=== PATIENT | male | born 1975 | race Two or more races ===

== ENCOUNTER 2020-12-01 22:31 | Inpatient (IN) | payer OTHER ==
[~2020-12-01] VITALS: Ht 157.5 cm; Wt 81.6 kg
== END 2020-12-05 11:43 | disposition home or self-care (01) | DRG 390 ==
LOC: ER 22:31 → SURH 12-02 10:14 → SEC-K 12-02 10:14 → SURH 12-03 11:45
PROVIDERS: ADMIT Surgery; ATTEND Surgery
PROC: BW2110Z Computerized Tomography (CT Scan) of Abdomen and Pelvis using Low Osmolar Contrast, Unenhanced and Enhanced (ICD-10-PCS; principal; 2020-12-01)
DX: K56.690 Other partial intestinal obstruction (principal); E86.0 Dehydration; Z90.49 Acquired absence of other specified parts of digestive tract

== ENCOUNTER 2021-03-21 12:38 | Outpatient (CLI) | payer OTHER | END 2021-03-21 12:55 | disposition home or self-care (01) | LOC: RAD 12:38 | PROVIDERS: ATTEND Orthopaedic Surgery | DX: M25.561 Pain in right knee (principal); M25.562 Pain in left knee; M54.59 Other low back pain ==

== ENCOUNTER 2022-08-07 16:27 | Emergency (ER) | payer OTHER ==
[~2022-08-07] VITALS: Ht 177.8 cm; Wt 81.2 kg
== END 2022-08-07 21:50 | disposition home or self-care (01) ==
LOC: ER 16:27
DX: N45.1 Epididymitis (principal)

== ENCOUNTER 2025-01-20 06:07 | Day surgery (SDC) | payer OTHER ==
[2025-01-12 14:19] VITALS: BP 110/69
[2025-01-12 14:22] LABS: URINE APPEARANCE Clear; URINE BILIRRUBIN Negative (NEGATIVE); URINE BLOOD Negative; URINE COLOR Yellow; URINE GLUCOSE Negative (NEGATIVE); URINE KETONE Negative (NEGATIVE); URINE LEUKOCYTE Negative; URINE NITRATE Negative; URINE PROTEIN Negative (NEGATIVE); URINE UROBILINOGEN 0.2 E.U./dl
[2025-01-12 14:23] LABS: BASO % 1.2 % (0.1-1.2); EOS # 0.43 (0.04-0.54); EOS % 8.9 % (0.7-7.0); LYMPH # 1.69 (1.18-3.74); LYMPH % 35.1 % (19.3-53.1); MEAN PLATELET VOLUME 10.40 fl (9.4-12.4); MONO # 0.47 (0.24-0.82); MONO % 9.8 % (4.7-12.5); NEUT # 2.16 (1.56-6.13); NEUT % 45.0 % (34.0-71.1); RED CELL DISTRIBUTION WIDTH 12.5 % (11.6-14.4); URINE RBC 7.7 uL (0.0-20.8); URINE WBC 2.1 uL (0.0-23.2)
[2025-01-12 14:29] LABS: URINE BACTERIA 1.1 uL (0.0-1933); URINE CAST 0.00 uL (0.0-1.40); URINE EPITHELIAL CELLS 1.0 uL (0.0-38.8)
[2025-01-12 14:45] LABS: ALT/SGPT 41.0 U/L (12-78); AST/SGOT 18.0 U/L (15-37); BILIRUBIN TOTAL 0.32 mg/dL (0.3-1.2); BUN CREA RATIO 16.0 (7.0-25.0); CREATININE SERUM 0.88 mg/dL (0.70-1.30); GFR 92.04; GLOBULINA 3.3 G/DL (2.4-3.5); GLUCOSE FASTING 97.0 mg/dL (65-100); OSMOLALITY SERUM 282.0 MOSM/KG (275-295)
[2025-01-12 15:04] LABS: INR 0.94
[~2025-01-20] VITALS: Ht 177.8 cm; Wt 81.6 kg
[2025-01-20] MEDS ORDERED: LIDOCAINE HCL 1%/EPINEPHRINE 20ML VIAL IJ ONE (11:45)
[2025-01-20] MEDS ORDERED: LIDOCAINE HCL 1% 20 ML VIAL IJ ONE (11:45)
[2025-01-20] MEDS ORDERED: FAMOTIDINE/PF 20 MG/10 ML SYRINGE IV SCH (12:15)
[2025-01-20] MEDS ORDERED: CEFAZOLIN SODIUM 1,000 MG VIAL IV SCH (12:15)
[2025-01-21 15:28] VITALS: BP 118/74; O2SAT 100
== END 2025-01-20 14:35 | disposition home or self-care (01) ==
LOC: CIR.AMB 06:07
PROVIDERS: ATTEND Specialist
DX: D17.0 Benign lipomatous neoplasm of skin and subcutaneous tissue of head, face and neck (principal)